=== PATIENT | male | born 1945 | race Caucasian/White ===

== ENCOUNTER → 2020-09-23 | Outpatient (CLI) | payer OTHER ==
[~2020-09-23] MED LIST: ASPIRIN EC81 MG PO; ATENOLOL25 MG PO; CARDURA 2MG TAB2 MG PO; CATAPRES 0.1MG0.1 MG PO; DAILY VALUE1 EACH PO; ELIQUIS2.5 MG PO; FARXIGA10 MG PO; FLOMAX 0.4 MG0.4 MG PO; GABAPENTIN300 MG PO; HYDROCODON-ACE1 EAC2 PO; MEGA BIOTIN10000 MCG PO; METFORMIN ER1000 MG PO; NORVASC10 MG PO; NOVOLOG 10100 UNITS2 INJ; OXYCODON-ACETA1 EAC1 PO; PLAVIX 75 MG TA75 MG PO; PRAVACHOL20 MG PO; PROSCAR 5 MG TAB5 MG PO; RELAFEN750 MG PO; ROBAXIN 750 MG750 MG PO; STOOL SOFT-STI1 EACH PO; VITAMIN C500 M2 PO; ZOLOFT50 MG PO
[2020-09-23 11:14] LABS: HEMOGLOBIN 15.5 gm/dl (14.0-17.5); RED BLOOD COUNT 4.68 M/UL (4.20-5.50); WHITE BLOOD COUNT 9.6 K/UL (4.5-11.0)
[2020-09-23 11:34] LABS: BUN/CREATININE RATIO 34 (0-10)
== END ==
LOC: OPSV2 09-18 10:00 → EDSTATUS 10:00 → OPSV2 10:00
PROVIDERS: Orthopaedic Surgery
DX: Z01.818 Encounter for other preprocedural examination (principal); M16.12 Unilateral primary osteoarthritis, left hip
CPT/HCPCS: 36415; 80048; 83036; 85025; 87081; 93005

== ENCOUNTER 2020-10-01 07:58 | Inpatient (IN) | payer OTHER ==
[~2020-10-01] VITALS: Ht 177.8 cm; Wt 98.4 kg
[2020-10-01] MEDS ORDERED: NOVOLOG 10100 UNITS2 INJ (09:37)
[2020-10-01] MEDS ORDERED: PRAVACHOL20 MG PO (09:37)
[2020-10-01] MEDS ORDERED: ATENOLOL25 MG PO (09:38)
[2020-10-01] MEDS ORDERED: NORVASC10 MG PO (09:39)
[2020-10-01] MEDS ORDERED: CATAPRES 0.1MG0.1 MG PO (09:43)
[2020-10-01] MEDS ORDERED: PLAVIX 75 MG TA75 MG PO (09:44)
[2020-10-01] MEDS ORDERED: FLOMAX 0.4 MG0.4 MG PO (09:44)
[2020-10-01] MEDS ORDERED: PROSCAR 5 MG TAB5 MG PO (09:44)
[2020-10-01] MEDS ORDERED: ASPIRIN EC81 MG PO (09:45)
[2020-10-01] MEDS ORDERED: METFORMIN ER1000 MG PO (09:45)
[2020-10-01] MEDS ORDERED: FARXIGA10 MG PO (09:46)
[2020-10-01] MEDS ORDERED: HYDROCODON-ACE1 EAC2 PO (09:47)
[2020-10-01] MEDS ORDERED: CARDURA 2MG TAB2 MG PO (09:47)
[2020-10-01] MEDS ORDERED: ZOLOFT50 MG PO (09:47)
[2020-10-01] MEDS ORDERED: RELAFEN750 MG PO (09:48)
[2020-10-01] MEDS ORDERED: GABAPENTIN300 MG PO (09:48)
[2020-10-01] MEDS ORDERED: VITAMIN C500 M2 PO (09:49)
[2020-10-01] MEDS ORDERED: ROBAXIN 750 MG750 MG PO (09:49)
[2020-10-01] MEDS ORDERED: MEGA BIOTIN10000 MCG PO (09:51)
[2020-10-01] MEDS ORDERED: DAILY VALUE1 EACH PO (09:53)
[2020-10-01] MEDS ORDERED: OXYCODON-ACETA1 EAC1 PO (15:19)
[2020-10-01] MEDS ORDERED: ELIQUIS2.5 MG PO (15:19)
[2020-10-02 04:18] LABS: HEMOGLOBIN 12.2 gm/dl (14.0-17.5); RED BLOOD COUNT 3.86 M/UL (4.20-5.50)
[2020-10-02 04:44] LABS: BUN/CREATININE RATIO 40 (0-10)
[2020-10-02] MEDS ORDERED: STOOL SOFT-STI1 EACH PO (12:16)
== END 2020-10-02 15:20 | disposition home health service (06) | DRG 470 ==
LOC: M/S 07:58 → ZOBSOF 07:58 → M/S 18:31
PROVIDERS: ADMIT Orthopaedic Surgery
PROC: 0SRB04A Replacement of Left Hip Joint with Ceramic on Polyethylene Synthetic Substitute, Uncemented, Open Approach (ICD-10-PCS; principal; 2020-10-01 11:45)
DX: M16.12 Unilateral primary osteoarthritis, left hip (principal); I10 Essential (primary) hypertension; E11.51 Type 2 diabetes mellitus with diabetic peripheral angiopathy without gangrene; F17.290 Nicotine dependence, other tobacco product, uncomplicated; F40.240 Claustrophobia; K59.00 Constipation, unspecified; F41.9 Anxiety disorder, unspecified; N40.0 Benign prostatic hyperplasia without lower urinary tract symptoms; Z79.02 Long term (current) use of antithrombotics/antiplatelets; Z79.82 Long term (current) use of aspirin; Z86.73 Personal history of transient ischemic attack (TIA), and cerebral infarction without residual deficits; Z79.4 Long term (current) use of insulin; Z79.899 Other long term (current) drug therapy
CPT/HCPCS: 36415; 73501; 73502; 76000; 80048; 82962; 85027; 86850; 86900; 86901; 97161; 97166; 97530; 97535; C1776; J0690; J1100; J2405; J2704; J2710; J2795; J3010; J3370; J7030; J7050; J7120

== ENCOUNTER → 2021-11-26 | Outpatient (CLI) | payer OTHER | LOC: CT 09:46 | DX: D37.05 Neoplasm of uncertain behavior of pharynx (principal); R59.0 Localized enlarged lymph nodes | CPT/HCPCS: 36415; 70491; 82565; 84520; Q9967 ==

== ENCOUNTER → 2021-12-03 | Outpatient (CLI) | payer OTHER ==
[~2021-12-03] MED LIST changes: +OMEPRAZOLE40 MG PO
[2021-12-03 14:05] LABS: HEMOGLOBIN 12.4 gm/dl (14.0-17.5); RED BLOOD COUNT 4.08 M/UL (4.20-5.50); WHITE BLOOD COUNT 7.5 K/UL (4.5-11.0)
[2021-12-03 14:25] LABS: BUN/CREATININE RATIO 40 (0-10)
== END ==
LOC: OPSV2 12:30
PROVIDERS: Anesthesiology
DX: Z01.818 Encounter for other preprocedural examination (principal)
CPT/HCPCS: 36415; 80048; 85025; 85610; 85730; 93005

== ENCOUNTER → 2021-12-05 | Day surgery (SDC) | payer OTHER | END | disposition home or self-care (01) | LOC: OR 06:37 | DX: D37.05 Neoplasm of uncertain behavior of pharynx (principal); G47.33 Obstructive sleep apnea (adult) (pediatric); I10 Essential (primary) hypertension; E78.5 Hyperlipidemia, unspecified; J44.9 Chronic obstructive pulmonary disease, unspecified; K21.9 Gastro-esophageal reflux disease without esophagitis; E11.9 Type 2 diabetes mellitus without complications; F17.210 Nicotine dependence, cigarettes, uncomplicated; Z79.01 Long term (current) use of anticoagulants; Z79.4 Long term (current) use of insulin; Z72.89 Other problems related to lifestyle; Z79.899 Other long term (current) drug therapy | CPT/HCPCS: 82962; J1100; J2001; J2370; J2405; J2704; J3010; J7120 ==

== ENCOUNTER → 2021-12-24 | Outpatient (CLI) | payer OTHER | LOC: MRI 16:30 | DX: C41.2 Malignant neoplasm of vertebral column (principal) | CPT/HCPCS: 72157; A9577 ==